=== PATIENT | male | born 1960 | race African-American/Black ===

== ENCOUNTER 2018-02-07 09:55 | Emergency (ER) | payer OTHER ==
[~2018-02-07] VITALS: Ht 180.3 cm; Wt 81.8 kg
[2018-02-07 10:09] VITALS: Ht 180.3 cm; Wt 81.8 kg
[2018-02-07] MEDS ORDERED: ULTRAM50 MG PO (12:57)
[2018-02-07] MEDS ORDERED: VOLTAREN75 MG PO (12:57)
[2018-02-07 13:06] VITALS: BP 144/62
== END 2018-02-07 13:10 | disposition home or self-care (01) ==
LOC: D.ER 09:55
DX: S62.631A Displaced fracture of distal phalanx of left index finger, initial encounter for closed fracture (principal); W19.XXXA Unspecified fall, initial encounter; Y93.89 Activity, other specified; Y92.019 Unspecified place in single-family (private) house as the place of occurrence of the external cause; S60.022A Contusion of left index finger without damage to nail, initial encounter; I10 Essential (primary) hypertension